=== PATIENT | female | born 1985 | race Caucasian/White ===

== ENCOUNTER → 2022-09-25 11:58 | Outpatient (CLI) | payer OTHER, SELFPAY ==
[2022-09-25 13:26] LABS: Basophils % 0.3 % (0.1-2.0); Eosinophils # 0.1 K/mm3 (0.0-0.4); Eosinophils % 1.2 % (0.1-12.0); Hematocrit 39.7 % (37.0-47.0); Hemoglobin 13.1 g/dL (12.2-16.2); Lymphocytes % 22.7 % (10-50); Mean Corpuscular HGB Conc 32.9 g/dL (31.8-35.4); Mean Corpuscular Hemoglobin 28.9 pg (27.0-31.2); Mean Corpuscular Volume 87.8 fl (81-99); Mean Platelet Volume 7.8 fl (7.4-10.4); Monocytes # 0.4 K/mm3 (0.1-1.0); Monocytes % 4.9 % (1.7-9.3); Neutrophils # 6.2 K/mm3 (1.8-7.8); Platelet Count 297 K/mm3 (142-424); Red Blood Count 4.52 M/mm3 (4.20-5.40); Red Cell Distribution Width 14.9 % (11.5-17.5); White Blood Count 8.7 K/mm3 (4.8-10.8)
[2022-09-25 14:36] LABS: Hemoglobin A1C 4.8 % (4.0-6.0)
[2022-09-25 14:40] LABS: Chloride 99 mmol/L (98-107); Sodium 135 mmol/L (136-145)
[2022-09-25 14:43] LABS: Alanine Aminotransferase 30 U/L (12-78); Albumin Level 4.1 g/dl (3.5-5.0); Albumin/Globulin Ratio 1.3 (1.1-1.8); Alkaline Phosphatase 105 U/L (38-126); Aspartate Amino Transferase 28 U/L (14-36); Bilirubin,Total 0.6 mg/dl (0.2-1.3); Blood Urea Nitrogen 12 mg/dl (7-17); Carbon Dioxide 26 mmol/L (22.0-30.0); Cholesterol 211 mg/dl (140-200); Estimated Glomerular Filt Rate 80 ml/min (>60); GFR (African American) 97 ML/MIN (>60); Globulin 3.2 g/dL (1.3-3.2); Total Protein,Serum 7.3 g/dl (6.3-8.2); Triglycerides 201 mg/dl (30-150); VLDL Cholesterol 40 mg/dL (0-40)
[2022-09-25 14:44] LABS: Calcium 8.9 mg/dl (8.4-10.2); Chol/HDL Ratio 5.7 (1-3.5); Glucose 80 mg/dl (74-100); HDL Cholesterol 37 mg/dl (40-60)
[2022-09-25 14:54] LABS: Direct LDL Cholesterol 136.65 mg/dL (100-129)
[2022-09-28 09:29] LABS: Thyroid Stimulating Hormone 2.01 uIU/mL (0.465-4.68)
== END ==
PROVIDERS: PCP Internal Medicine; Visit Provider Internal Medicine
DX: E03.9 Hypothyroidism, unspecified (principal); E78.5 Hyperlipidemia, unspecified; E66.01 Morbid (severe) obesity due to excess calories; R94.6 Abnormal results of thyroid function studies; R53.83 Other fatigue; F33.0 Major depressive disorder, recurrent, mild; Z86.2 Personal history of diseases of the blood and blood-forming organs and certain disorders involving the immune mechanism
CPT/HCPCS: 80053; 80061; 83036; 84443; 85025

== ENCOUNTER → 2022-09-30 07:26 | Outpatient (CLI) | payer OTHER, SELFPAY ==
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
== END ==
PROVIDERS: PCP Internal Medicine; Visit Provider Internal Medicine
DX: R22.31 Localized swelling, mass and lump, right upper limb (principal); Z80.7 Family history of other malignant neoplasms of lymphoid, hematopoietic and related tissues
CPT/HCPCS: 73200

== ENCOUNTER 2024-06-30 08:39 | Emergency (ER) | payer SELFPAY ==
--- NOTE | 2024-06-30 08:38 | ECG_ITS ---
APPROVED REPORT Exam: Resting ECG HR:89 bpm ECG Measurements Heart Rate 89 AXES MN 146 P 40 QRSd 92 QRS 66 QT 348 T 15 QTc 394 Conclusion SINUS RHYTHM NORMAL ECG Electronically signed by : JUSTINO MUÑOZ, 06/30/2024 15:20:35
[2024-06-30 08:40] VITALS: BP 168/95; PULSE 94; RESP 18; TEMP 36.6; O2SAT 98; BMI 46.0
--- NOTE | 2024-06-30 08:50 | PC.NURSE ---
to bs for fast exam
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
--- NOTE | 2024-06-30 09:00 | PC.NURSE ---
c-collar placed on pt
[2024-06-30 09:01] VITALS: BP 143/70; PULSE 78; O2SAT 97
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
[2024-06-30 09:06] LABS: Basophils % 0.3 % (0.1-2.0); Eosinophils # 0.1 K/mm3 (0.0-0.4); Eosinophils % 1.8 % (0.1-12.0); Hematocrit 38.3 % (37.0-47.0); Hemoglobin 12.4 g/dL (12.2-16.2); Lymphocytes # 1.7 K/mm3 (0.7-4.5); Lymphocytes % 21.2 % (10-50); Mean Corpuscular HGB Conc 32.4 g/dL (31.8-35.4); Mean Corpuscular Hemoglobin 28.7 pg (27.0-31.2); Mean Corpuscular Volume 88.7 fl (81-99); Monocytes # 0.4 K/mm3 (0.1-1.0); Monocytes % 5.5 % (1.7-9.3); Neutrophils # 5.5 K/mm3 (1.8-7.8); Neutrophils % 70.7 % (37.0-80.0); Platelet Count 211 K/mm3 (142-424); Red Blood Count 4.32 M/mm3 (4.20-5.40); Red Cell Distribution Width 13.2 % (11.5-17.5); White Blood Count 7.8 K/mm3 (4.8-10.8)
[2024-06-30 09:10] LABS: Albumin Level 3.9 g/dl (3.5-5.0); Chloride 106 mmol/L (98-107); Sodium 140 mmol/L (136-145)
[2024-06-30 09:11] LABS: Potassium 4.4 mmoL/L (3.5-5.1)
[2024-06-30 09:13] LABS: Alanine Aminotransferase 27 U/L (12-78); Albumin/Globulin Ratio 1.3 (1.1-1.8); Alkaline Phosphatase 127 U/L (38-126); Anion Gap 10.4 mEq/L (5-15); Aspartate Amino Transferase 30 U/L (14-36); Bilirubin,Total 0.2 mg/dl (0.2-1.3); Blood Urea Nitrogen 14 mg/dl (7-17); Carbon Dioxide 28 mmol/L (22.0-30.0); Estimated Glomerular Filt Rate 92 ml/min (>60); GFR (African American) 112 ML/MIN (>60); Total Protein,Serum 6.9 g/dl (6.3-8.2)
[2024-06-30 09:14] LABS: Calcium 8.7 mg/dl (8.4-10.2); Glucose 92 mg/dl (74-100)
--- NOTE | 2024-06-30 09:20 | PC.NURSE ---
pt to CT via stretcher
[2024-06-30] MEDS: ACETAMINOPHEN 500MG TAB 1000 MG PO (09:22)
[2024-06-30 09:28] LABS: Troponin I < 0.01 ng/ml (0.00-0.034)
[2024-06-30 09:29] LABS: HCG Qualitative, Serum Negative (Negative)
[2024-06-30 09:32] LABS: Activated Partial Thrombo Time 25.4 seconds (22.5-28.5); INR 0.87 (0.9-1.1); Prothrombin Time 9.7 seconds (9.2-12.1)
[2024-06-30] MEDS: 0.9 % SODIUM CHLORIDE 50 ML VIAL 100 ML IV (09:42)
[2024-06-30] MEDS: SODIUM CHLORIDE 0.9% 10ML SYR (RAD ONLY) 10 ML IV (09:43)
[2024-06-30] MEDS: IOPAMIDOL-370 (76%);100ML BOTTLE 160 ML IV (09:43)
--- NOTE | 2024-06-30 09:49 | PC.NURSE ---
pt returned to her room from radiology.
--- NOTE | 2024-06-30 09:53 | PC.NURSE ---
I ambulated pt to the bathroom. pt ambulated in no apparent distress.
[2024-06-30 10:19] LABS: HIV Combo NEGATIVE (Negative)
[2024-06-30 10:27] LABS: Hepatitis C Ab Qual. W/ RFX NEGATIVE (Negative)
[2024-06-30 10:34] VITALS: BP 118/73; PULSE 76; RESP 12; O2SAT 98
[2024-06-30 11:01] VITALS: BP 103/54; PULSE 77; RESP 16; O2SAT 98
[2024-06-30 11:30] VITALS: BP 113/64; PULSE 74; RESP 13; O2SAT 99
--- NOTE | 2024-06-30 11:30 | PC.NURSE ---
prelim abd/pelvis report given to
--- NOTE | 2024-06-30 11:50 | PC.NURSE ---
I rounded on the pt and lizzie her second trop for lab. no new complaint at this time. no needs voiced. call colvin in reach.
[2024-06-30 12:18] LABS: Troponin I < 0.01 ng/ml (0.00-0.034)
[2024-06-30 12:42] VITALS: BP 106/65; PULSE 75; RESP 19; TEMP 36.7; O2SAT 99
== END 2024-06-30 12:50 | disposition home or self-care (01) ==
PROVIDERS: Emergency Provider Emergency Medicine; PCP Internal Medicine Adolescent Medicine
DX: M54.50 Low back pain, unspecified (principal); M54.2 Cervicalgia; R07.9 Chest pain, unspecified; V87.7XXA Person injured in collision between other specified motor vehicles (traffic), initial encounter
CPT/HCPCS: 70450; 70496; 70498; 71045; 71275; 72125; 72128; 72131; 72170; 72192; 74174; 80053; 84484; 84703; 85025; 85610; 85730; 86803; 87389; 93005; 99285; Q9967

== ENCOUNTER 2025-03-29 19:52 | Outpatient (CLI) | payer BC, SELFPAY ==
[2025-03-29 14:24] LABS: Alanine Aminotransferase 45 U/L (12-78); Albumin Level 4.3 g/dl (3.5-5.0); Albumin/Globulin Ratio 1.2 (1.1-1.8); Alkaline Phosphatase 121 U/L (38-126); Anion Gap 11.4 mEq/L (5-15); Aspartate Amino Transferase 37 U/L (14-36); Bilirubin,Total 0.5 mg/dl (0.2-1.3); Blood Urea Nitrogen 14 mg/dl (7-17); Calcium 9.1 mg/dl (8.4-10.2); Carbon Dioxide 26 mmol/L (22.0-30.0); Chloride 103 mmol/L (98-107); Cholesterol 176 mg/dl (140-200); Creatinine,Serum 0.80 mg/dl (0.52-1.04); Estimated Glomerular Filt Rate 79 ml/min (>60); GFR (African American) 96 ML/MIN (>60); Globulin 3.6 g/dL (1.3-3.2); Glucose 78 mg/dl (74-100); HDL Cholesterol 44 mg/dl (40-60); Potassium 4.4 mmoL/L (3.5-5.1); Sodium 136 mmol/L (136-145); Total Protein,Serum 7.9 g/dl (6.3-8.2); Triglycerides 141 mg/dl (30-150)
== END 2025-03-29 23:59 | disposition home or self-care (01) ==
LOC: LAB.DROPOF 19:53
PROVIDERS: PCP Internal Medicine; Visit Provider Internal Medicine
DX: E66.01 Morbid (severe) obesity due to excess calories (principal); F41.9 Anxiety disorder, unspecified; F33.9 Major depressive disorder, recurrent, unspecified; E78.5 Hyperlipidemia, unspecified
CPT/HCPCS: 80053; 80061

== ENCOUNTER 2025-04-24 08:06 | Outpatient (CLI) | payer BC, SELFPAY ==
--- NOTE | 2025-04-24 08:00 | MM_ITS ---
PROCEDURE INFORMATION: Exam: Bilateral Screening 3D Mammography Exam date and time: 04/24/2025 8:09 AM Age: 39 years old Clinical indication: Baseline examination. TECHNIQUE: Imaging protocol: Bilateral Screening tomosynthesis and 2D mammography including computer-aided detection (CAD) when performed. COMPARISON: No relevant prior studies available. FINDINGS: MAMMOGRAPHY: Breast composition: There are scattered areas of fibroglandular density. Mass: Two homo, perhaps slightly nodular masses in the right lower inner quadrant middle 3rd, 8 cm from the nipple and right lower upper quadrant posterior 3rd, 10 cm from the nipple measuring 0.5 cm with a few calcifications and 0.8 cm, respectively, CC image 1026 frame 50 and MLO image 1372 frame 36. Architectural distortion: None. Calcifications: No suspicious calcifications. Asymmetric density: None. Skin thickening: None. Axillary adenopathy: None. IMPRESSION: Patient will be recalled for right diagnostic mammography and right sonography for further evaluation of masses. ASSESSMENT: BI-RADS Category 0: Incomplete: Need Additional Imaging Evaluation.
== END 2025-04-24 23:59 | disposition home or self-care (01) ==
LOC: RAD 08:06
PROVIDERS: PCP Internal Medicine; Visit Provider Internal Medicine
DX: Z12.31 Encounter for screening mammogram for malignant neoplasm of breast (principal); N63.14 Unspecified lump in the right breast, lower inner quadrant; R92.323 Mammographic fibroglandular density, bilateral breasts
CPT/HCPCS: 77063; 77067

== ENCOUNTER 2025-05-07 16:00 | Outpatient (CLI) | payer BC, SELFPAY ==
--- NOTE | 2025-05-07 16:00 | US_ITS ---
PROCEDURE INFORMATION: Exam: US Right Breast, Complete MG Right Diagnostic Breast Tomosynthesis Exam date and time: 05/07/2025 4:11 PM Age: 39 years old Clinical indication: Patient recalled on the basis of a screening mammogram for further evaluation; Right breast; masses TECHNIQUE: Imaging protocol: Complete ultrasound of all four quadrants of the right breast and the retroareolar regions, including ultrasound of the axilla when performed. Right Diagnostic tomosynthesis and 2D mammography including computer-aided detection (CAD) when performed. Unilateral or bilateral exam. COMPARISON: MG MM DIG SCREENING MAMM BI W/CAD 04/24/2025 8:09 AM FINDINGS: MAMMOGRAPHY: Breast composition: There are scattered areas of fibroglandular density. Breast mammogram findings: Digital diagnostic spot compression views of the right breast and 90 degree lateral view of the right breast demonstrate a persistent ovoid minimally calcified 0.5 cm mass in the posterior right lower inner quadrant and a persistent round 0.5 cm mass in the posterior right approximate 3 o'clock axis ULTRASOUND: Breast ultrasound findings: Sonographic images of the right breast including the retroareolar region, all 4 quadrants and the axilla do not demonstrate any solid masses. 0.3 cm hypoechoic mass in the right 2 o'clock axis 8 cm from the nipple likely reflecting a debris-filled cyst. It is unclear if this correlates with either of the 2 masses seen on mammography. No architectural distortion or acoustical shadowing. No skin thickening or axillary adenopathy. Review of the patient's mammogram suggests that the 2 subcentimeter masses in the right breast are probably benign. IMPRESSION: 1. Two probably benign subcentimeter masses in the right medial breast only well seen on mammography. 2. Probable debris-filled cyst in the right 2 o'clock axis on sonography. 3. A six-month follow-up diagnostic right mammogram and targeted right breast ultrasound are recommended to ensure stability over time ASSESSMENT: BI-RADS Category 3: Probably benign.
== END 2025-05-07 23:59 | disposition home or self-care (01) ==
LOC: RAD 16:01
PROVIDERS: PCP Internal Medicine; Visit Provider Internal Medicine
DX: N63.14 Unspecified lump in the right breast, lower inner quadrant (principal); N63.12 Unspecified lump in the right breast, upper inner quadrant; N63.15 Unspecified lump in the right breast, overlapping quadrants; R92.8 Other abnormal and inconclusive findings on diagnostic imaging of breast; R92.321 Mammographic fibroglandular density, right breast
CPT/HCPCS: 76641; 77061; 77065; G0279